=== PATIENT | male | born 1970 | race Caucasian/White ===

== ENCOUNTER 2021-10-18 20:05 | Emergency (ER) | payer MEDICAID, SELFPAY ==
[2021-10-18 20:30] VITALS: BP 209/113; PULSE 83; RESP 16; TEMP 36.8; O2SAT 95; BMI 25.2
[2021-10-18 23:41] LABS: Add Urine Microscopic? NO; Charge for UA Resulting for Rev
[2021-10-18 23:43] LABS: Basophils # 0.1 10^3/uL (0.0-0.1); Basophils % 0.6 %; Eosinophils # 0.1 10^3/uL (0.0-0.8); Eosinophils % 0.5 %; Hematocrit 48.6 % (42.0-52.0); Hemoglobin 15.8 g/dL (11.7-16.6); Lymphocytes # 2.2 10^3/uL (0.8-4.8); Lymphocytes % 21.3 %; Mean Corpuscular HGB Conc 32.5 g/dL (30.0-36.0); Mean Corpuscular Hemoglobin 29.2 pg (28.0-34.0); Mean Corpuscular Volume 89.7 fl (80-94); Mean Platelet Volume 10.8 fL (7.4-10.4); Monocytes # 0.6 10^3/uL (0.2-0.9); Monocytes % 5.7 %; Neutrophils # 7.34 10^3/uL (1.8-7.7); Neutrophils % 71.6 %; Nucleated Red Blood Cells % 0 %; Platelet Count 209 10^3/cmm (130-400); Red Blood Count 5.42 10^6/uL (4.1-5.3); Red Cell Distribution Width 13.2 % (12.1-15.1); White Blood Count 10.2 10^3/uL (4.0-10.0)
[2021-10-18 23:49] LABS: Bilirubin Urine Neg (Negative); Blood Urine Neg (Negative); Glucose Urine UA Norm (Normal); Ketones Urine Negative (Negative); Leukocyte Esterase Urine Negative (Negative); Nitrate Urine Negative (Negative); Protein Urine Neg (Negative); Specific Gravity, Urine 1.005 (1.005-1.030); Urine Appearance Clear (CLEAR); Urine Color Yellow (Yellow); Urobilinogen Urine Norm (Negative); pH Urine 7 (5-7)
[2021-10-19 00:01] LABS: Alanine Aminotransferase 17 U/L (0-41); Albumin Level 4.5 g/dL (3.5-5.2); Alkaline Phosphatase 65 IU/L (40-130); Anion Gap 12.9 (5-19); Aspartate Amino Transferase 20 U/L (0-40); Blood Urea Nitrogen 7 mg/dL (6-20); Calcium 9.1 mg/dL (8.5-10.5); Carbon Dioxide 26 mmol/L (22-29); Chloride 106 mmol/L (98-107); Globulin 3.2 g/dL (1.3-4.6); Glomerular Filtration Rate 101.5 mL/min (90-130); Glucose 106 mg/dL (65-115); Lipase 17 U/L (13-60); Osmolality Calculated 290 mOsm/kg (285-295); Potassium 3.9 mmol/L (3.5-5.1); Sodium 141 mmol/L (136-145); Total Bilirubin 0.7 mg/dL (0.15-1.2); Total Protein 7.7 g/dL (6.6-8.7)
--- NOTE | 2021-10-19 01:19 | CTR_ITS ---
PROCEDURE INFORMATION: Exam: CT Abdomen And Pelvis Without Contrast Exam date and time: 10/19/2021 1:35 AM Age: 51 years old Clinical indication: Abdominal pain; Periumbilical; Additional info: Periumbilical abd pain TECHNIQUE: Imaging protocol: Computed tomography of the abdomen and pelvis without contrast. Radiation optimization: All CT scans at this facility use at least one of these dose optimization techniques: automated exposure control; mA and/or kV adjustment per patient size (includes targeted exams where dose is matched to clinical indication); or iterative reconstruction. COMPARISON: No relevant prior studies available. RADIATION DOSE METRICS: Total DLP (mGy-cm): 1112.93 FINDINGS: Liver: Normal. No mass. Gallbladder and bile ducts: Normal. No calcified stones. No ductal dilation. Pancreas: Normal. No ductal dilation. Spleen: Normal. No splenomegaly. Adrenal glands: Normal. No mass. Kidneys and ureters: Normal. No hydronephrosis. Stomach and bowel: Mildly prominent fluid in the small bowel without dilation suggestive of an enteritis. Appendix: No evidence of appendicitis. Intraperitoneal space: Unremarkable. No free air. No significant fluid collection. Vasculature: Unremarkable. No abdominal aortic aneurysm. Lymph nodes: Unremarkable. No enlarged lymph nodes. Urinary bladder: Unremarkable as visualized. Reproductive: Unremarkable as visualized. Bones/joints: Unremarkable. No acute fracture. Soft tissues: Large umbilical hernia containing omentum without bowel, with minimal edema of the omentum, please correlate for reduction. CT/CT abdomen pelvis wo con [id number] IMPRESSION: 1. Large umbilical hernia containing omentum without bowel, with minimal edema of the omentum, please correlate for reduction. 2. Mildly prominent fluid in the small bowel without dilation suggestive of an enteritis.
[2021-10-19 03:24] VITALS: BP 197/97; PULSE 71; RESP 18; TEMP 36.6; O2SAT 98
--- NOTE | 2021-10-19 19:13 | ED_ITS ---
HPI - Abdominal Pain General: Chief Complaint: Abdominal Pain Stated Complaint: ABD Pain/Hernia Time Seen by Provider: 10/18/21 21:51 History of Present Illness: 51-year-old male with a history of periumbilical hernia. Evidently, he has been having to reduce this on his own, when it becomes entrapped at home. He has been doing this on and off for quite some time and putting off having it evaluated. It happened again today, and he reduced it on his own, but it felt tender and swollen following, so he came in for evaluation. He denies fever vomiting. He denies blood in his stool. MD elicited complaint: abdominal pain Pertinent past history: other Onset (ago): week(s) Pain Consistency: intermittent Location: Periumbilical Severity: moderate Quality: cramping and aching Radiation: none Migration to: no migration Exacerbating factors: other Relieving factors: other Associated Symptoms: Denies bloating, chills, constipation, fever(s), hem atochezia and vomiting Review of Systems Const: Denies: fever(s) or chills Card: Denies: chest pain Resp: Denies: dyspnea GI: Denies: vomiting, constipation, bloating or hematochezia Skin/Breast: Denies: rash Physical Exam Const: COMMON NORMALS: no acute distress HENMT: COMMON NORMALS: normocephalic, atraumatic and Normal external nose present HEAD & SCALP: normocephalic and atraumatic FACE & SINUS: normal facial exam and face symmetric NOSE: Normal external nose present Eye: COMMON NORMALS: Equal, round and reactive pupils present and EOMs intact bilaterally PUPIL: Yes Equal, round and reactive pupils present Chest: CHEST: Yes Symmetrical chest wall rise Resp: COMMON NORMALS: normal respiratory effort, No use of accessory muscles and clear to auscultation bilaterally AUSCULTATION: clear to auscultation bilaterally Cardio: COMMON NORMALS: regular rate and regular rhythm RATE: regular rate RHYTHM: regular rhythm GI: OTHER: Exam of the belly reveals a periumbilical hernia. It is soft, however there is some mild swelling that may be omentum in the region. He remains tender. It does feel reduced Neuro: SHAWN COMA SCALE: document GCS findings Shawn coma scale eye opening: Spontaneous Shawn coma scale verbal response: Orientated Shawn coma scale motor response: Obey commands Ramah coma scale total score: 15 Course Vital Signs: Vital signs: Vital Signs Temperature 97.9 F 10/19/21 03:24 Pulse Rate 71 10/19/21 03:24 Respiratory Rate 18 10/19/21 03:24 Blood Pressure 197/97 10/19/21 03:24 Pulse Oximetry 98 10/19/21 03:24 MDM - Abdominal Pain Medical Decision Making CT shows a large umbilical hernia containing omentum without bowel. Minimal edema, likely the cause of his swelling and tenderness. His white blood cell count is 10. His BMP is normal. Case management order has been placed for surgical referral for this patient for evaluation as an outpatient Lab Data : 10/18/21 23:30 10/18/21 23:30 Labs/Radiology: Radiology Impressions Abdomen/Pelvis CT 10/19/21 01:19 IMPRESSION: 1. Large umbilical hernia containing omentum without bowel, with minimal edema of the omentum, please correlate for reduction. 2. Mildly prominent fluid in the small bowel without dilation suggestive of an enteritis. Laboratory Results WBC 10.2 10^3/uL (4.0-10.0) H 10/18/21 23:30 RBC 5.42 10^6/uL (4.1-5.3) H 10/18/21 23:30 Hgb 15.8 g/dL (11.7-16.6) 10/18/21 23:30 Hct 48.6 % (42.0-52.0) 10/18/21 23:30 MCV 89.7 fl (80-94) 10/18/21 23:30 MCH 29.2 pg (28.0-34.0) 10/18/21 23:30 MCHC 32.5 g/dL (30.0-36.0) 10/18/21 23:30 RDW 13.2 % (12.1-15.1) 10/18/21 23:30 Plt Count 209 10^3/cmm (130-400) 10/18/21 23:30 MPV 10.8 fL (7.4-10.4) H 10/18/21 23:30 Neut % (Auto) 71.6 % 10/18/21 23:30 Lymph % (Auto) 21.3 % 10/18/21 23:30 [place] % (Auto) 5.7 % 10/18/21 23: Eos % (Auto) 0.5 % 10/18/21 23:30 Baso % (Auto) 0.6 % 10/18/21 23: Neut # (Auto) 7.34 10^3/uL (1.8-7.7) 10/18/21 23:30 Lymph # (Auto) 2.2 10^3/uL (0.8-4.8) 10/18/21: [place] # (Auto) 0.6 10^3/uL (0.2-0.9) 10/18/21 23:30 Eos # (Auto) 0.1 10^3/uL (0.0-0.8) 10/18/21: Baso # (Auto) 0.1 10^3/uL (0.0-0.1) 10/18/21: Nucleated RBC % (auto) 0 % 10/18/21: Nucleated RBCs # 0.0 /100WBC 10/18/21: Sodium 141 mmol/L (136-145) 10/18/21 23: Potassium 3.9 mmol/L (3.5-5.1) 10/18/21: Chloride 106 mmol/L (98-107) 10/18/21: Carbon Dioxide 26 mmol/L (22-29) 10/18/21: Anion Gap 12.9 (5-19) 10/18/21:30 BUN 7 mg/dL (6-20) 10/18/21: Creatinine 0.8 mg/dL (0.7-1.2) 10/18/21: GFR Calculation 101.5 mL/min (90-130) 10/18/21: Glucose 106 mg/dL (65-115) 10/18/21: Calculated Osmolality 290 mOsm/kg (285-295) 10/18/21: Calcium 9.1 mg/dL (8.5-10.5) 10/18/21: Total Bilirubin 0.7 mg/dL (0.15-1.2) 10/18/21: AST 20 U/L (0-40) 10/18/21: ALT 17 U/L (0-41) 10/18/21 23:30 Alkaline Phosphatase 65 IU/L (40-130) 10/18/21 23:30 C-Reactive Protein 3.0 mg/L (0.0-4.9) 10/18/21 23:30 Total Protein 7.7 g/dL (6.6-8.7) 10/18/21 23:30 Albumin 4.5 g/dL (3.5-5.2) 10/18/21 23:30 Globulin 3.2 g/dL (1.3-4.6) 10/18/21 23:30 Lipase 17 U/L (13-60) 10/18/21 23:30 Urine Color Yellow (Yellow) 10/18/21 23:30 Urine Appearance Clear (CLEAR) 10/18/21 23:30 Urine pH 7 (5-7) 10/18/21 23:30 Ur Specific [place] 1.005 (1.005-1.030) 10/18/21 23:30 Urine Protein Neg (Negative) 10/18/21 23:30 Urine Glucose (UA) Norm (Normal) 10/18/21 23:30 Urine Ketones Negative (Negative) 10/18/21 23:30 Urine Blood Neg (Negative) 10/18/21 23:30 Urine Nitrate Negative (Negative) 10/18/21 23:30 Urine Bilirubin Neg (Negative) 10/18/21 23:30 Urine Urobilinogen Norm mg/dL (Negative) 10/18/21 23:30 Ur Leukocyte Esterase Negative (Negative) 10/18/21 23:30 Discharge Plan Discharge Patient Disposition: Home Clinical Impression: Umbilical hernia Condition: Stable Prescriptions: New hydrocodone-acetaminophen 5-325 mg tablet 1 tab PO Q8H PRN (Reason: pain) Qty: 7 0RF ondansetron 4 mg film 4 mg PO DAILY PRN (Reason: nausea and vomiting) Qty: 10 0RF Discharge Orders: Discharge ED (Routine); Ordered 10/19/21 Ordered By: Spencer Trevino Patient Instructions: Umbilical Hernia (ED), Opioid Safety Activity Restrictions/Additional Instructions: Our ER bilingual patient support caseworker will call you at the beginning of the week with an appointment for surgical evaluation. If you do not hear from them by Wednesday afternoon, dial [phone] and ask for the ER bilingual patient support caseworker during normal business hours. Return for fever, vomiting liquids, any other concerns. Coding Level of Care Code ED Laser Engineer for Kalli Sorto
--- NOTE | 2021-10-20 13:23 | DCPLANNER ---
Addendum entered by Eileen Henao 11/03/21 07:34: Patient had a follow up appointment with ortho - patient did attend appointment. Addendum entered by Eileen Henao 10/24/21 12:30: Patient has a follow up appointment was scheduled for Wednesday, October 29, 2021 at 11:[address] Barraza at general surgery. Clinic will call patient with appointment information. Original Note: manager exchange had message to schedule a follow up appointment for patient with general surgery. manager exchange sent patients information to the front office staff at general surgery. Patients information will be printed and reviewed. Clinic will call patient with appointment information.
== END 2021-10-19 03:27 | disposition home or self-care (01) ==
PROVIDERS: Emergency Provider Emergency Medicine
DX: K42.9 Umbilical hernia without obstruction or gangrene (principal)
CPT/HCPCS: 74176; 80053; 81003; 83690; 85025; 86140; 99283

== ENCOUNTER 2021-11-27 07:36 | Day surgery (SDC) | payer MEDICAID, SELFPAY ==
[2021-11-26 10:52] VITALS: BMI 25.1
[2021-11-27] VITALS (13 sets, daily range): BP systolic 138–179; BP diastolic 76–114; PULSE 71–109; RESP 13–26; TEMP 36.6; O2SAT 91–97
--- NOTE | 2021-11-27 08:47 | W.PM.OPSUD ---
Surgery/Procedure H&P Update DATE OF PROCEDURE: November 27, 2021 DATE H&P PERFORMED: 10/29/21 CHANGES TO PREVIOUS DOCUMENTATION: NONE PREOP DIAGNOSIS: umbilical hernia PLANNED PROCEDURE: Operation Date: 11/27/21 09:35 Proposed Procedures p Laparoscopic Ventral Hernia Repair w/ Mesh 25182,K42.9(Not Applicable) - Trevon Barraza DO
[2021-11-27] MEDS: sodium chloride 0.9% 1,000 ML 30 ML IV (08:51)
--- NOTE | 2021-11-27 09:04 | ANES.PREANE2 ---
Pre-Anesthetic Assessment Height/Weight: Height 1.75 m Weight 77.111 kg Temp Pulse Resp BP Pulse Ox 97.9 F 71 16 164/106 96 11/27/21 07:55 11/27/21 07:55 11/27/21 07:55 11/27/21 07:55 11/27/21 07:55 Preop Diagnosis: umbilical hernia Operation Date: 11/27/21 09:35 Proposed Procedures p Laparoscopic Ventral Hernia Repair w/ Mesh 78176,K42.9(Not Applicable) - Trevon Barraza DO Familial anesthetic complications: none Was Beta Amarilis taken within 24 hours: N/A Was Clonidine taken within 24 hours: N/A Last intake: Intake Last Liquid Date 11/26/21 Last Liquid Time 22:00 Last Solid Date 11/25/21 Social No alcohol and No tobacco (Occ. john) Exam alert, oriented x 3, clear to auscultation bilaterally and regular rate & rhythm Airway Submandibular: within normal limits Cervical ROM: within normal limits Mallampati: Class II Dentition: chipped History/ROS No significant history except as noted Neuropsych Anxiety Anesthetic Plan ASA status: 2 Anesthesia: General Medications/Allergies Home Medications Medication Instructions Recorded Confirmed Last Taken Type ondansetron 4 mg oral soluble film 4 mg PO DAILY PRN #10 each 10/19/21 11/26/21 Unknown Rx Allergies Allergy/AdvReac Type Severity Reaction Status Date / Time codeine Allergy ADR-Nausea Verified 11/27/21 07:57 Current Medications Generic Name Dose Route Start Last Admin Trade Name Freq PRN Reason Stop Dose Admin Sodium Chloride 1,000 mls @ 30 mls/hr 11/27/21 08:00 11/27/21 08:51 Sodium Chloride 0.9% IV 11/28/21 07:59 30 mls/hr .Q24H URSZULA Administration PFSH Anesthesia Medical History (Updated 10/29/21 @ 14:12 by Trevon Barraza DO) Umbilical hernia Social History Smoking and tobacco status: former smoker Data Anesthesia Cardiac Studies: No Data to Display
[2021-11-27] MEDS: ceFAZolin 2,000 MG in sodium chloride 0.9% (plus) 50 ML 100 MG IV (09:22)
--- NOTE | 2021-11-27 10:18 | P.OP_ITS ---
Operative Report Date of procedure: November 27, 2021 Pre-op diagnosis: Preop Diagnosis umbilical hernia Post-op diagnosis: same Procedure done: Laparoscopic repair of umbilical hernia with mesh Implants: 6 inch mesh Specimens removed/disposition: Hernia sac Surgeon: Dr. Trevon Barraza DO Anesthesia: General Complications: None apparent Brief History: This is a very pleasant 51-year-old gentleman who came in with an umbilical black ia. Laparoscopic repair with mesh was indicated. The risks and benefits were explained and documented. Procedure: Patient was wheeled into the operative room and placed on the OR table in a supine position. Abdomen was inspected prepped and draped in usual sterile fashion. Time-out was performed and all present were in agreement. A 15 blade scalp was used to make a 5 millimeter incision left upper quadrant. A Veress needle was placed into the incision and intra-abdominal insufflation was brought to 15 millimeters of mercury. A 2nd 5 millimeter trocar was placed into the left lower quadrant. The energy but device was then used to cut out the hernia sac. An 6 inchmesh was placed into the abdomen and brought up through the umbilicus. The mesh was then tacked in place in a double crown fashion. The hernia sac was then removed from the abdomen via the left lower quadrant. The left lower quadrant port site was closed with an 0 Vicryl suture in a Marcos- Gianna in a [id number] fashion. Incisions were closed with 4 O Vicryl in a subcuticular interrupted fashion. Skin glue was applied. A dressing that included cotton balls and a Tegaderm was placed over the umbilicus. Patient tolerated the procedure well.
[2021-11-27] MEDS: HYDROmorphone 1 mg/mL INJ 1 mL IVP (10:19)
--- NOTE | 2021-11-27 10:34 | PC.NURSE ---
1019 verbal order received for 1 mg dilaudid now
[2021-11-27] MEDS: HYDROmorphone 1 mg/mL INJ 1 mL 0.5 MG IVP (10:40)
[2021-11-27] MEDS: HYDROcodone-acetaminophen 5-325 mg Tablet 1 TAB PO (11:40)
--- NOTE | 2021-11-27 14:43 | ANE.PACU2 ---
Inpatient post-anesthesia follow up: Airway intact: Yes Vital signs: Temperature 97.9 F Pulse Rate 88 Respiratory Rate 14 Blood Pressure 152/88 Pulse Oximetry 96 Oxygen Delivery Me thod Room Air Oxygen Flow Rate Fraction of Inspir ed Oxygen Hydration adequate: Yes Nausea and vomiting: No Pain level: 4 Mental status: Baseline
== END 2021-11-27 11:50 | disposition home or self-care (01) ==
PROVIDERS: Visit Provider Surgery
PROC: 0WQF4ZZ Repair Abdominal Wall, Percutaneous Endoscopic Approach (ICD-10-PCS; CPT 49585; principal; 2021-11-27 09:25)
DX: K42.9 Umbilical hernia without obstruction or gangrene (principal); Z87.891 Personal history of nicotine dependence
CPT/HCPCS: 49585; 88302; J0360; J1100; J1170; J2405; J2704; J2710; J3010; J3490; J3535; J7030

== ENCOUNTER → 2022-02-05 09:03 | Outpatient (BNVA) | payer MEDICAID, SELFPAY | PROVIDERS: PCP Family Medicine; Visit Provider Family Medicine | DX: I10 Essential (primary) hypertension (principal); Z12.5 Encounter for screening for malignant neoplasm of prostate | CPT/HCPCS: 80061; 82043; G0103 ==

== ENCOUNTER 2022-04-02 05:42 | Day surgery (SDC) | payer MEDICAID, SELFPAY ==
[2022-04-01 07:32] VITALS: BMI 27.0
[2022-04-02 06:07] VITALS: BP 168/99; PULSE 71; RESP 18; TEMP 36.8; O2SAT 96
--- NOTE | 2022-04-02 06:16 | W.PM.OPSFHP ---
Same Day Surgery H&P Indication for Procedure/HPI DATE OF PROCEDURE: April 02, 2022 CHIEF COMPLAINT/INDICATIONFOR SURGICAL PROCEDURE: Screening colonoscopy PREOP DIAGNOSIS: umbilical hernia PLANNED PROCEDURE: Operation Date: 04/02/22 07:00 Proposed Procedures p Colonoscopy 07704,Z12.11(Not Applicable) - Miguelangel Yeboah MD This is a pleasant 52 years old gentleman referred to my practice for screening colonoscopy. Patient never had a colonoscopy before. Denies bleeding per rectum or change in bowel habits or caliber of the stool. Except every now and then. ROS All systems have been reviewed negative except as for the above or per problem list. Medications/Allergies* Allergies/Adverse Reactions Allergy/AdvReac Type Severity Reaction Status Date / Time codeine Allergy ADR-Nausea Verified 04/02/22 06:14 Pertinent History/Comorbid Conditions* Surgical History (Updated 12/11/21 @ 14:18 by Trevon Barraza DO) Hx of umbilical hernia repair Social History Smoking and tobacco status: former smoker Alcohol intake: never Adopted: No Caregiver/support person: No Lives independently: Yes Household members: spouse Housing: House Marital status: Number of children: 3 Number of grandchildren: 10 Highest education level completed: High School Graduate service: No Current occupational status: unemployed Pertinent Exam Findings alert, oriented x 3, clear to auscultation bilaterally, regular rate & rhythm and procedure specific exam findings (Abdominal exam nontender nondistended soft) Recommendations Surgery/Procedure today (Colonoscopy with possible biopsy) Other Plans: Plan of care; After thorough history and physical examination and reviewing the chart, plan to perform screening colonoscopy. I discussed with the patient in details the risks,benefits,alternatives and indications.The risk of aspiration, bleeding, soft tissue injury, perforation of the colon ,missed lesions and other potential concomitant complications were explained to the patient in details,also the potential need for Laproscoy/Laparotomy to repair any related complications including but not limited to colectomy and or Closotomy.The patient understood this well and did agree to proceed. Rationale was carefully and clearly discussed with the patient.Appropriate informed consent have been reviewed and signed All questions have been answered and all concerns have been addressed to patient's satisfaction. Verbal and written Instructions were given to the patient for colonoscopy prep Coding Level of Care Code Acute Careers Counsellor for Emoryg Noreen
[2022-04-02] MEDS: sodium chloride 0.9% 1,000 ML 30 ML IV (06:17)
--- NOTE | 2022-04-02 07:21 | ANES.PREANE2 ---
Pre-Anesthetic Assessment Height/Weight: Height 1.73 m Weight 80.739 kg Temp Pulse Resp BP Pulse Ox O2 Del Method 98.2 F 71 18 168/99 96 04/02/22 06:07 04/02/22 06:07 04/02/22 06:07 04/02/22 06:07 04/02/22 06:07 04/02/22 06:07 Preop Diagnosis: Screening colonoscopy Operation Date: 04/02/22 07:00 Proposed Procedures p Colonoscopy 21839,Z12.11(Not Applicable) - Miguelangel Yeboah MD Was Beta Amarilis taken within 24 hours: N/A Was Clonidine taken within 24 hours: N/A Last intake: Intake Last Liquid Date 04/01/22 Last Liquid Time 22:00 Last Solid Date 03/31/22 Social No alcohol and No tobacco Exam alert, oriented x 3, clear to auscultation bilaterally and regular rate & rhythm Airway Submandibular: within normal limits Cervical ROM: within normal limits Mallampati: Class II Dentition: full History/ROS No significant history except as noted Pulmonary None reported CV/HEM Hypertension None reported Hepatic None reported GI None reported Metabolic None reported Musc/skel None reported Neuropsych None reported Anesthetic Plan ASA status: 2 Anesthesia: Anesthesia Evaluation and MAC Risk of > 500 ml blood loss (7ml/kg in children): No Medications/Allergies Home Medications Medication Instructions Recorded Confirmed Last Taken Type amlodipine 10 mg tablet 10 mg PO DAILY #90 tabs 02/05/22 04/01/22 03/31/22 Rx Allergies Allergy/AdvReac Type Severity Reaction Status Date / Time codeine Allergy ADR-Nausea Verified 04/02/22 06:14 Current Medications Generic Name Dose Route Start Last Admin Trade Name Freq PRN Reason Stop Dose Admin Sodium Chloride 1,000 mls @ 30 mls/hr 04/02/22 06:00 04/02/22 06:17 Sodium Chloride 0.9% IV 04/03/22 05:59 30 mls/hr .Q24H URSZULA Administration PFSH Anesthesia Surgical History Hx of umbilical hernia repair Social History Smoking and tobacco status: former smoker Alcohol intake: never Adopted: No Caregiver/support person: No Lives independently: Yes Household members: spouse Housing: House Marital status: Number of children: 3 Number of grandchildren: 10 Highest education level completed: High School Graduate service: No Current occupational status: unemployed Data Anesthesia Cardiac Studies: No Data to Display
[2022-04-02 07:30] VITALS: BP 104/66; PULSE 76; RESP 16; TEMP 36.4; O2SAT 96
[2022-04-02 07:45] VITALS: BP 105/70; PULSE 80; RESP 16; O2SAT 97
--- NOTE | 2022-04-02 10:26 | ANE.PACU2 ---
Inpatient post-anesthesia follow up: Airway intact: Yes Vital signs: Temperature 97.5 F Pulse Rate 80 Respiratory Rate 16 Blood Pressure 105/70 Pulse Oximetry 97 Oxygen Delivery Me thod Room Air Oxygen Flow Rate Fraction of Inspir ed Oxygen Hydration adequate: Yes Nausea and vomiting: No Pain level: 1 Mental status: Baseline
== END 2022-04-02 07:58 | disposition home or self-care (01) ==
PROVIDERS: PCP Family Medicine; Visit Provider Surgery
PROC: 0DJD8ZZ Inspection of Lower Intestinal Tract, Via Natural or Artificial Opening Endoscopic (ICD-10-PCS; CPT 45378; principal; 2022-04-02 07:00)
DX: Z12.11 Encounter for screening for malignant neoplasm of colon (principal); D12.5 Benign neoplasm of sigmoid colon; K57.30 Diverticulosis of large intestine without perforation or abscess without bleeding; K63.89 Other specified diseases of intestine; I10 Essential (primary) hypertension; F17.200 Nicotine dependence, unspecified, uncomplicated
CPT/HCPCS: 45380; 88305; J2704; J7030

== ENCOUNTER → 2023-02-04 08:50 | Outpatient (BNVA) | payer MEDICAID, SELFPAY | PROVIDERS: PCP Family Medicine; Visit Provider Family Medicine | DX: I10 Essential (primary) hypertension (principal); Z12.5 Encounter for screening for malignant neoplasm of prostate | CPT/HCPCS: 80053; 80061; G0103 ==

== ENCOUNTER 2024-07-18 05:36 | Day surgery (SDC) | payer MEDICAID, SELFPAY ==
--- NOTE | 2024-07-17 20:49 | ANES.PREANE2 ---
Pre-Anesthetic Assessment Height/Weight: Height 5 ft 9 in Preop Diagnosis: Inguinal hernia Operation Date: 07/18/24 07:00 Proposed Procedures p Laparoscopic Inguinal Hernia Repair w/Mesh [id number], K40.20(Bilateral) - Trevon Barraza DO Was Beta Amarilis taken within 24 hours: N/A Was Clonidine taken within 24 hours: N/A Social No alcohol and No tobacco Smokes marijuana Exam alert, oriented x 3, clear to auscultation bilaterally and regular rate & rhythm Airway Submandibular: within normal limits Cervical ROM: within normal limits Mallampati: Class II Dentition: full Anesthetic Plan ASA status: 3 Anesthesia: General Other: No prior issues with anesthesia NPO since yesterday evening Patient is very nervous this morning History of hypertension on losartan. Preop BP 187/139 Smokes marijuana METs greater than 4 Plan for general anesthesia Medications/Allergies Home Medications ?Medication ?Instructions ?Recorded ?Confirmed ?Last Taken ?Type losartan 25 mg tablet 25 mg PO DAILY #30 tabs 06/19/24 07/17/24 07/18/24 Rx Allergies Allergy/AdvReac Type Severity Reaction Status Date / Time codeine Allergy ADR-Nausea Verified 07/17/24 11:28 [facility] Anesthesia Medical History Right inguinal hernia Surgical History (Updated 06/26/24 @ 14:21 by Trevon Barraza DO) Hx of colonoscopy 04/02/22 Hx of umbilical hernia repair Social History Smoking and tobacco/nicotine status: former use of tobacco/nicotine Alcohol intake: never Substance/Drug Use: never Adopted: No Caregiver/support person: No Lives independently: Yes Household members: spouse Housing: House Marital status: Number of children: 3 Number of grandchildren: 10 Highest education level completed: High School Graduate service: No Current occupational status: unemployed Data Anesthesia Cardiac Studies: No Data to Display
[2024-07-18] VITALS (9 sets, daily range): BP systolic 156–187; BP diastolic 89–139; PULSE 64–84; RESP 14–19; TEMP 36.3–36.4; O2SAT 91–96; BMI 27.0
[2024-07-18] MEDS: sodium chloride 0.9% 1,000 ML 30 ML IV (06:37)
[2024-07-18] MEDS: ceFAZolin 2,000 mg SDV 2000 MG IVP (07:00)
--- NOTE | 2024-07-18 07:00 | W.PM.OPSUD ---
Surgery/Procedure H&P Update DATE OF PROCEDURE: July 18, 2024 DATE H&P PERFORMED: 06/26/24 H&P UPDATE INFORMATION: I have reviewed H&P completed within last 30 days, I have examined patient prior to procedure and No changes to prior documentation PREOP DIAGNOSIS: Inguinal hernia PLANNED PROCEDURE: Operation Date: 07/18/24 07:00 Proposed Procedures p Laparoscopic Inguinal Hernia Repair w/Mesh [id number], K40.20(Bilateral) - Trevon Barraza DO
[2024-07-18] MEDS: lidocaine-epi 2% PF 1:200,000 20 mL SDV INJECTION (07:50)
[2024-07-18] MEDS: tranexamic acid 1,000 mg/10mL SDV 1000 MG IV ×2 (07:53→08:56)
--- NOTE | 2024-07-18 08:05 | PM.OP ---
Operative Report Date of procedure: July 18, 2024 Surgeon: Trevon Barraza DO Procedure: Pre-op diagnosis: Bilateral inguinal hernias Post-op diagnosis: Bilateral indirect inguinal hernias Procedure done: Laparoscopic (TEPP) repair of left inguinal hernia with mesh Laparoscopic (TEPP) repair of right inguinal hernia with mesh Implants: Left and right extra-large 3D max Bard mesh is Specimens removed/disposition: None Surgeon: Trevon Barraza DO Anesthesia: General and Local Estimated blood loss (mL): 5 Complications: None apparent Brief History: This is a very pleasant 54-year-old gentleman who presented my office with bilateral inguinal hernias. Laparoscopic repair with mesh was indicated. The risk and benefits were explained and documented. Procedure: Patient was wheeled into the operative room and placed on the OR table in a supine position. Abdomen was inspected prepped and draped in usual sterile fashion. Time-out was performed and all present were in agreement. A 15 blade scalpel was used to make 1.2 centimeter incision infraumbilically. Combination of sharp and blunt dissection was performed down to the anterior rectus sheath which was opened sharply. The dissecting balloon was then inserted into the space of Retzius and blown up. We put the camera into the port and identified that we were in the correct space. I then placed 2 5 millimeter trocars suprapubically in the midline. I then used endokitners to bluntly dissect in the space of Retzius out laterally. An indirect inguinal hernia was identified on the right. Blunt dissection was performed to dissect down the hernia sac until the vas deferens dove medially. An extra-large 3D max Bard right inguinal mesh was then placed into the space of Retzius. The mesh was unrolled and tacked once medially at the pubic bone. The mesh laid out nicely over the spermatic cord. An indirect inguinal hernia was identified on the left. Blunt dissection was performed to dissect down the hernia sac until the vas deferens dove medially. An extra-large 3D max Bard left inguinal mesh was then placed into the space of Retzius. The mesh was unrolled and tacked once medially at the pubic bone. The mesh laid out nicely over the spermatic cord. Hernia sacs were held underneath the meshes as the insufflation was released. Incisions were closed with 4 O Vicryl in a subcuticular interrupted fashion. Skin glue was applied. Patient tolerated the procedure well.
--- NOTE | 2024-07-18 08:31 | PC.NURSE ---
0828- Dr Mccloud called to bedside pt cursing at this nurse refusing to follow commands - attempting to get out of bed - unable to retrieve vital signs due to pts inability to cooperate
--- NOTE | 2024-07-18 08:40 | PC.NURSE ---
0840 - pt calming to Dr Barraza's presence - repeatedly saying thank you Mr. Barraza
--- NOTE | 2024-07-18 08:46 | PC.NURSE ---
0846 - Hay, RN bedside for this nurse to give report - pt speaking with Ray calmly and willing to cooperate without issues with Ray
--- NOTE | 2024-07-18 08:53 | PC.NURSE ---
0849 - Dr Mccloud to follow up with Preeti, RN and Phuong, RN to make aware of pts disposition in pacu - unwillingness to cooperate with PACU nurse - repeatedly cursing after multiple attempts per this nurse to instruct pt to be still in bed in order to not harm post surgical site - pt given urinal during pacu stay as pt voiced need to urinate - upon giving urinal to pt he would spit into urinal and throw into floor - cursing at nurse that he dropped it and needed it - once urinal handed to pt per this nurse - pt again spit into urinal and threw into floor - pt would calm to Dr Mccloud's presence - became tearful when speaking with Dr. Barraza - referring to him as Mr. Barraza - pt apologized to Dr Barraza for being mean to his male dr - pt states I'm high and can't help it
[2024-07-18] MEDS: HYDROcodone-acetaminophen 7.5-325 mg Tablet 1 TAB PO (09:15)
--- NOTE | 2024-07-18 09:35 | ANE.PACU2 ---
Inpatient post-anesthesia follow up: Airway intact: Yes Vital signs: Temperature 97.5 F Pulse Rate 72 Respiratory Rate 17 Blood Pressure 169/90 Pulse Oximetry 94 Oxygen Delivery Me thod Room Air Oxygen Flow Rate Fraction of Inspir ed Oxygen Hydration adequate: Yes Nausea and vomiting: No Pain level: 1 Mental status: Baseline
== END 2024-07-18 09:25 | disposition home or self-care (01) ==
PROVIDERS: Visit Provider Surgery
PROC: (CPT 49650; principal; 2024-07-18 07:00)
DX: K40.20 Bilateral inguinal hernia, without obstruction or gangrene, not specified as recurrent (principal); I10 Essential (primary) hypertension; Z79.899 Other long term (current) drug therapy; Z88.5 Allergy status to narcotic agent; Z87.891 Personal history of nicotine dependence
CPT/HCPCS: 49650; 51702; C1781; J0690; J1100; J2405; J2704; J3010; J3490; J7030

== ENCOUNTER 2024-07-23 16:12 | Emergency (ER) | payer MEDICAID, SELFPAY ==
[2024-07-23 16:19] VITALS: BP 131/87; PULSE 107; RESP 15; TEMP 36.7; O2SAT 97; BMI 26.2
[2024-07-23 17:35] VITALS: BP 104/54
[2024-07-23 18:14] VITALS: BP 133/88; O2SAT 96
--- NOTE | 2024-07-23 18:28 | XRR_ITS ---
PROCEDURE INFORMATION: Exam: XR Abdomen Exam date and time: 07/23/2024 6:43 PM Age: 54 years old Clinical indication: Constipation; 5 days post op bilateral inguinal hernia repair TECHNIQUE: Imaging protocol: Radiologic exam of the abdomen. Views: 2 Views. Upright and supine views. COMPARISON: CT abdomen pelvis con [id number] 10/19/2021 1:35 AM FINDINGS: Gastrointestinal tract: [id number] small and large bowel air with some air-fluid levels seen along the ascending and transverse portions of the colon and to a lesser degree also in the sigmoid area. Intraperitoneal space: Normal. No free air. Bones/joints: Unremarkable for age. XR/XR acute abdomen series [id number] IMPRESSION: Mild air with small scattered air-fluid levels predominantly in the colon question enteritis.
[2024-07-23 18:33] VITALS: BP 133/88; O2SAT 98
--- NOTE | 2024-07-23 19:49 | ED_ITS ---
HPI - Abdominal Pain General: Chief Complaint: Abdominal Pain Stated Complaint: sx on 07/18 - no bm Time Seen by Provider: 07/23/24 17:46 History of Present Illness: This patient is a 54-year-old white male who presents to the emergency department complaining of constipation. Patient had herniorrhaphy done last Wednesday by Dr. Barraza. Patient is on hydrocodone as needed for pain. States he has not had a bowel movement for several days. He is passing gas. He has not had a fever. He has had some nausea but no vomiting. Associated Symptoms: Reports nausea Related Data Previous Rx's ?Medication ?Instructions ?Recorded losartan 25 mg tablet 25 mg PO DAILY #30 tabs 08/08 docusate sodium 100 mg capsule 100 mg PO BID #14 caps 07/18/24 (Colace) hydrocodone 7.5 mg-acetaminophen 1 tab PO Q6H PRN pain #20 tabs 07/18/24 325 mg tablet polyethylene glycol 3350 17 17 g PO DAILY 7 days #119 grams 07/18/24 gram/dose oral powder (Miralax) Allergies Allergy/AdvReac Type Severity Reaction Status Date / Time codeine Allergy ADR-Nausea Verified 07/17/24 11:28 Review of Systems General: Reports: 10 or more systems reviewed and unremarkable except in HPI and below GI: Reports: nausea PFSH ED PFSH: Medical History (Updated 07/23/24 @ 19:48 by Tigre Parnell MD) Right inguinal hernia Surgical History (Updated 06/26/24 @ 14:21 by Trevon Barraza DO) Hx of colonoscopy 04/02/22 Hx of umbilical hernia repair Social History Smoking and tobacco/nicotine status: former use of tobacco/nicotine Alcohol intake: never Substance/Drug Use: never Adopted: No Caregiver/support person: No Lives independently: Yes Household members: spouse Housing: House Marital status: Number of children: 3 Number of grandchildren: 10 Highest education level completed: High School Graduate service: No Current occupational status: unemployed Physical Exam Const: COMMON NORMALS: no acute distress, patient oriented x3 and no limitations GENERAL APPEARANCE: cooperative and comfortable HENMT: COMMON NORMALS: normocephalic, atraumatic, Normal nasal mucous membranes and turbinates present, moist oral mucous membranes and oropharynx normal HEAD & SCALP: normal to inspection, normocephalic and atraumatic FACE & SINUS: normal facial exam NOSE: Normal nasal mucous membranes and turbinates present Eye: COMMON NORMALS: Equal, round and reactive pupils present, EOMs intact bilaterally and conjunctivae normal GENERAL EYE: appearance normal, both eyes and all related structures CONJUNCTIVA: Yes conjunctivae normal PUPIL: Yes Equal, round and reactive pupils present Neck/C-Spine: COMMON NORMALS: supple and no JVD Chest: COMMONS NORMALS: normal inspection of the chest Resp: COMMON NORMALS: normal respiratory effort and clear to auscultation bilaterally AUSCULTATION: clear to auscultation bilaterally Cardio: COMMON NORMALS: no JVD, regular rate, regular rhythm, No gallops present (Cardio), No murmurs present (Cardio) and No rub (Cardio) RATE: regular rate RHYTHM: regular rhythm GI: COMMON NORMALS: Normal to inspection, nondistended, normoactive bowel sounds present, Soft to palpation and non-tender AUSCULTATION: Yes normoactive bowel sounds PALPATION: Yes Soft to palpation : COMMON NORMALS: Yes no CVA tenderness BLADDER/KIDNEY EXAM: Yes no CVA tenderness Back/Pelvis: COMMON NORMALS: no CVA tenderness and thoracic and lumbar spine normal to inspection Extremity: COMMON NORMALS: normal to inspection Neuro: COMMON NORMALS: patient oriented x3 and CN's II-XII intact bilaterally Psych: COMMON NORMALS: mental status grossly normal, Normal thought process present and cooperative THOUGHT PROCESS: Normal thought process present Skin: COMMON NORMALS: no rashes or lesions noted, turgor normal and no jaundice GENERAL SKIN EXAM: no rashes or lesions noted and turgor normal Course Vital Signs: Vital signs: Vital Signs Temperature 98.1 F 07/23/24 16:19 Pulse Rate 107 H 07/23/24 16:19 Respiratory Rate 15 07/23/24 16:19 Blood Pressure 133/88 07/23/24 18:33 Pulse Oximetry 98 07/23/24 18:33 Oxygen Delivery Me thod Room Air 07/23/24 16:19 MDM - Abdominal Pain Medical Decision Making Patient was sent home with Nan. I recommended he drink half of that container flush his bowels out. Recommended he contact his surgeon with any further concerns. He was discharged in stable condition. Lab Data Labs/Radiology: Radiology Impressions Chest/Abdomen X-ray 07/23/24 18:28 IMPRESSION: Mild air with small scattered air-fluid levels predominantly in the colon question enteritis. All radiology interpretation(s) finalized by discharge Discharge Plan Discharge Patient Disposition: Home Clinical Impression: Constipation Condition: Stable Prescriptions: No Action losartan 25 mg tablet 25 mg PO DAILY Qty: 30 1RF hydrocodone-acetaminophen 7.5-325 mg tablet 1 tab PO Q6H PRN (Reason: pain) Qty: 20 0RF docusate sodium [Colace] 100 mg capsule 100 mg PO BID Qty: 14 0RF polyethylene glycol 3350 [Miralax] 17 gram/dose powder 17 g PO DAILY 7 Days Qty: 119 0RF Discharge Orders: Discharge ED (Routine); Ordered 07/23/24 Ordered By: Tigre Parnell Patient Instructions: Constipation (DC) Print Language: [place] Coding Level of Care Code ED Sales Development Specialist for Kalli Sorto
[2024-07-23] MEDS: peg /e-lyte soln 4,000 mL Btl 4000 ML PO (21:11)
[2024-07-23 21:16] VITALS: BP 150/86; PULSE 90; RESP 18; O2SAT 96
== END 2024-07-23 21:18 | disposition home or self-care (01) ==
PROVIDERS: Emergency Provider Emergency Medicine
DX: K59.00 Constipation, unspecified (principal); Z87.891 Personal history of nicotine dependence
CPT/HCPCS: 74022; 99283